=== PATIENT | male | born 1985 | race Two or more races ===

== ENCOUNTER 2017-02-05 02:16 | Emergency (ER) | payer BC, OTHER ==
[2017-02-05 02:24] VITALS: TEMP 97.9; O2SAT 95
[2017-02-05] MEDS ORDERED: ACETAMINOPHEN 500 MG TAB PO ONE (02:25)
[2017-02-05] MEDS ORDERED: IBUPROFEN 600 MG TAB PO ONE (02:25)
[2017-02-05] MEDS ORDERED: TDAP ADULT 0.5 ML INJ (BOOSTRIX) IM ONE (03:14)
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
[2017-02-05 05:49] VITALS: BP 132/84; PULSE 84; RESP 18
== END 2017-02-05 05:47 | disposition home or self-care (01) ==
LOC: EDBD 02:16 → MERGE 02:16
PROC: 0CQ0XZZ Repair Upper Lip, External Approach (ICD-10-PCS; principal; 2017-02-05)
PROC: 3E0234Z Introduction of Serum, Toxoid and Vaccine into Muscle, Percutaneous Approach (ICD-10-PCS; principal; 2017-02-05)
PROC: 0HQGXZZ Repair Left Hand Skin, External Approach (ICD-10-PCS; principal; 2017-02-05)
DX: S02.2XXA Fracture of nasal bones, initial encounter for closed fracture (principal); S01.511A Laceration without foreign body of lip, initial encounter; S61.411A Laceration without foreign body of right hand, initial encounter; Z23 Encounter for immunization; Y04.0XXA Assault by unarmed brawl or fight, initial encounter; Y92.69 Other specified industrial and construction area as the place of occurrence of the external cause; Y99.0 Civilian activity done for income or pay; Y93.89 Activity, other specified

== ENCOUNTER 2017-07-01 12:43 | Emergency (ER) | payer BC, OTHER ==
[2017-07-01 12:58] VITALS: RESP 18; TEMP 99.1; O2SAT 94
[2017-07-01] MEDS ORDERED: NS 1,000 ML IV ONE (13:03)
[2017-07-01 13:18] LABS: % IMMATURE GRANULYOCYTES 0.3 % (0.0-1.1); ABSOLUTE IMMATURE GRANULOCYTES 0.03 10^3/uL (0.00-0.10); ADD DIFF? NO; ADD MORPH? NO; ADD SCAN? NO; ATYPICAL LYMPHOCYTE FLAG 0 (0-99); FRAGMENT RBC FLAG 0 (0-99); HEMATOCRIT 44.7 % (40.0-51.0); HEMOGLOBIN 15.9 g/dL (13.7-17.5); LEFT SHIFT FLG 0 (0-99); LIPEMIA HEMOLYSIS FLAG 90 (0-99); MEAN CELL HEMOGLOBIN 32.4 pg (27.9-34.1); MEAN CELL HEMOGLOBIN CONCENTR. 35.6 g/dL (32.4-36.7); MEAN CELL VOLUME 91.2 fL (81.5-99.8); MEAN PLATELET VOLUME 8.8 fL (8.7-11.7); PLATELET CLUMPS FLAG 10 (0-99); PLATELET COUNT 225 10^3/uL (150-400); RED CELL DISTRIBUTION WIDTH 13.1 % (11.5-15.2)
[2017-07-01 13:32] LABS: ALANINE AMINOTRANSFERASE 48 IU/L (21-72); ALBUMIN 4.2 g/dL (3.5-5.0); ALKALINE PHOSPHATASE 61 IU/L (38-126); ANION GAP 11 mEq/L (8-16); ASPARTATE AMINOTRANSFERASE 26 IU/L (17-59); BILIRUBIN,TOTAL 1.5 mg/dL (0.1-1.4); CALCIUM 9.1 mg/dL (8.5-10.4); CARBON DIOXIDE 25 mEq/l (22-31); CHLORIDE 102 mEq/L (97-110); CREATININE 0.9 mg/dL (0.7-1.3); GLOMERULAR FILTRATION RATE > 60; GLUCOSE 97 mg/dL (70-100); POTASSIUM 4.2 mEq/L (3.5-5.2); SODIUM 138 mEq/L (134-144); TOTAL PROTEIN 6.7 g/dL (6.3-8.2)
[2017-07-01] MEDS ORDERED: KETOROLAC 30 MG/1 ML SDV IVP ONE (13:58)
[2017-07-01 14:21] LABS: COLOR YELLOW; LEUKOCYTE ESTERASE,URINE NEGATIVE (NEGATIVE); NITRITE,URINE NEGATIVE (NEGATIVE)
--- NOTE | 2017-07-01 14:37 | EDPHY ---
H & P Stated Complaint: RUQ pain since 2299 Time Seen by Provider: 07/01/17 12:56 HPI/ROS: This patient reports gradual onset of right upper quadrant abdominal pain, onset yesterday evening of 11:00 p.m. or so that persists since then. The nature the pain is achy. It worsened slightly with a deep breath and certain movements and radiates to his back. He does recall having this pain before. States this feels similar to a muscle ache but does remember any injuries. He notes a feeling of chills last night as if he had a fever but he did not have a fever. He also reports associated nausea and loss of appetite. No other associated symptoms. No other exacerbating or alleviating factors are noted. Came in by private vehicle for further evaluation accompanied by his girlfriend. ROS: As per HPI. No significant fatigue. HEENT: No URI symptoms. No sore throat. Pulmonary: No shortness of breath. No coughing. Cardiovascular: No heart palpitations. No chest pain. No lower extremity swelling. GI: No lower abdominal pain. Normal bowel movements. : No urinary symptoms. No testicle pain. Integumentary: No skin rash Neuro: No numbness tingling. Endocrine: No complaints Complete review of symptoms is otherwise negative Source: Patient Exam Limitations: No limitations - Personal History Tetanus Vaccine Date: 2006 - Medical/Surgical History PMH: Otherwise healthy Hx Asthma: No Hx Chronic Respiratory Disease: No Hx Diabetes: No Hx Cardiac Disease: No Hx Renal Disease: No Hx Cirrhosis: No Hx Alcoholism: No Hx HIV/AIDS: No Hx Splenectomy or Spleen Trauma: No Other PMH: concussions, right knee surgery. no PSH - Family History Significant Family History: No pertinent family hx - Social History Smoking Status: Never smoked Alcohol Use: Occasionally Drug Use: Marijuana - Physical Exam Exam: General Appearance: Alert, no distress. Eyes: Pupils equal and round no pallor or injection. ENT, Mouth: Mucous membranes moist. Respiratory: There are no retractions, lungs are clear to auscultation. Cardiovascular: Regular rate and rhythm. No murmur gallop rub. No JVD. No peripheral edema. Gastrointestinal: Normoactive, soft, mild right upper quadrant tenderness with no guarding or rebound. No organomegaly no lower belly tenderness. Back: No CVA tenderness : No testicular tenderness. Neurological: GCS 15 with no focal deficits. Skin: Warm and dry, no rashes. Musculoskeletal: Neck is supple nontender. Extremities are symmetrical, full range of motion. Psychiatric: Mood and affect normal. DIFFERENTIAL DIAGNOSIS: After history and physical exam differential diagnosis was considered for musculoskeletal injury, cholecystitis, hepatitis, pancreatitis, gastritis, cardiac ischemic disease, acid reflux, PE Constitutional: Initial Vital Signs Temperature (C) 37.3 C 07/01/17 12:55 Heart Rate 80 07/01/17 12:55 Respiratory Rate 18 07/01/17 12:55 Blood Pressure 119/79 07/01/17 12:55 O2 Sat (%) 94 07/01/17 12:55 O2 Delivery Mode Room Air Allergies/Adverse Reactions: No Known Allergies Allergy (Unverified 07/01/17 12:58) Home Medications: Medication Instructions Recorded EPINEPHRINE [EPIPEN] 0.3 mg IM ONCE #2 syr 12/12/15 Medical Decision Making - Diagnostics EKG Interpretation: 12 lead EKG: Performed at 2:35 p.m. indication upper belly pain rule out cardiac ischemia Sinus rhythm 75 Intervals: Normal [place]: Normal ST segments: Normal Overall assessment: Normal EKG Imaging Results: Chest x-ray PA and lateral: Normal by my interpretation Imaging: I viewed and interpreted images myself ED Course/Re-evaluation: IV Toradol for pain with partial relief Review of his labs reveals minimal elevation of his white blood cell count, normal comp metabolic panel including LFTs, normal lipase, negative D-dimer Patient's chest x-ray is also normal is EKG is normal. I think that the source of this patient's pain is likely musculoskeletal given his negative workup the. Other he has had no recent injuries he did have recent URI he may have costochondritis or pleurisy causing his symptoms. After workup, no evidence of PE, ischemic cardiac disease, pneumonia, pneumothorax, pancreatitis, cholecystitis, hepatitis or other concerning findings. I counseled him regarding this. He understands the need to return emergency department if he has significant worsening of symptoms or additional symptoms despite the treatment plan. - Data Points Laboratory Results: Laboratory Results 07/01/17 13:15 07/01/17 13:15 07/01/17 07/01/17 07/01/17 14:15 13:15 13:15 WBC RBC Hgb Hct MCV MCH MCHC RDW Plt Count MPV Neut % (Auto) Lymph % (Auto) Blount % (Auto) Eos % (Auto) Baso % (Auto) Nucleat RBC Rel Count Absolute Neuts (auto) Absolute Lymphs (auto) Absolute Monos (auto) Absolute Eos (auto) Absolute Basos (auto) Absolute Nucleated RBC Immature Gran % Immature Gran # D-Dimer 0.31 ug/mLFEU ug/mLFEU (0.00-0.50) Sodium 138 mEq/L mEq/L (134-144) Potassium 4.2 mEq/L mEq/L (3.5-5.2) Chloride 102 mEq/L mEq/L (97-110) Carbon Dioxide 25 mEq/l mEq/l (22-31) Anion Gap 11 mEq/L mEq/L (8-16) BUN 12 mg/dL mg/dL (7-23) Creatinine 0.9 mg/dL mg/dL (0.7-1.3) Estimated GFR > 60 Glucose 97 mg/dL mg/dL (70-100) Calcium 9.1 mg/dL mg/dL (8.5-10.4) Total Bilirubin 1.5 mg/dL H mg/dL (0.1-1.4) AST 26 IU/L IU/L (17-59) ALT 48 IU/L IU/L (21-72) Alkaline Phosphatase 61 IU/L IU/L (38-126) Total Protein 6.7 g/dL g/dL (6.3-8.2) Albumin 4.2 g/dL g/dL (3.5-5.0) Lipase 54 IU/L IU/L (23-300) Urine Color YELLOW Urine Appearance CLEAR Urine pH 8.0 H (5.0-7.5) Ur Specific [place] 1.010 (1.002-1.030) Urine Protein NEGATIVE (NEGATIVE) Urine Ketones NEGATIVE (NEGATIVE) Urine Blood NEGATIVE (NEGATIVE) Urine Nitrate NEGATIVE (NEGATIVE) Urine Bilirubin NEGATIVE (NEGATIVE) Urine Urobilinogen 0.2 EU EU (0.2-1.0) Ur Leukocyte Esterase NEGATIVE (NEGATIVE) Urine Glucose NEGATIVE (NEGATIVE) 07/01/17 13:15 WBC 10.73 10^3/uL H 10^3/uL (3.80-9.50) RBC 4.90 10^6/uL 10^6/uL (4.40-6.38) Hgb 15.9 g/dL g/dL (13.7-17.5) Hct 44.7 % % (40.0-51.0) MCV 91.2 fL fL (81.5-99.8) MCH 32.4 pg pg (27.9-34.1) MCHC 35.6 g/dL g/dL (32.4-36.7) RDW 13.1 % % (11.5-15.2) Plt Count 225 10^3/uL 10^3/uL (150-400) MPV 8.8 fL fL (8.7-11.7) Neut % (Auto) 78.1 % H % (39.3-74.2) Lymph % (Auto) 13.5 % L % (15.0-45.0) Blount % (Auto) 7.1 % % (4.5-13.0) Eos % (Auto) 0.7 % % (0.6-7.6) Baso % (Auto) 0.3 % % (0.3-1.7) Nucleat RBC Rel Count 0.0 % % (0.0-0.2) Absolute Neuts (auto) 8.39 10^3/uL H 10^3/uL (1.70-6.50) Absolute Lymphs (auto) 1.45 10^3/uL 10^3/uL (1.00-3.00) Absolute Monos (auto) 0.76 10^3/uL 10^3/uL (0.30-0.80) Absolute Eos (auto) 0.07 10^3/uL 10^3/uL (0.03-0.40) Absolute Basos (auto) 0.03 10^3/uL 10^3/uL (0.02-0.10) Absolute Nucleated RBC 0.00 10^3/uL 10^3/uL (0-0.01) Immature Gran % 0.3 % % (0.0-1.1) Immature Gran # 0.03 10^3/uL 10^3/uL (0.00-0.10) D-Dimer Sodium Potassium Chloride Carbon Dioxide Anion Gap BUN Creatinine Estimated GFR Glucose Calcium Total Bilirubin AST ALT Alkaline Phosphatase Total Protein Albumin Lipase Urine Color Urine Appearance Urine pH Ur Specific Waucoma Urine Protein Urine Ketones Urine Blood Urine Nitrate Urine Bilirubin Urine Urobilinogen Ur Leukocyte Esterase Urine Glucose Medications Given: Discontinued Medications Sodium Chloride (Ns) 1,000 mls @ 0 mls/hr IV EDNOW ONE; Wide Open PRN Reason: Protocol Stop: 07/01/17 13:04 Last Admin: 07/01/17 13:10 Dose: 1,000 mls Ketorolac Tromethamine (Toradol) 30 mg IVP EDNOW ONE Stop: 07/01/17 13:59 Last Admin: 07/01/17 14:07 Dose: 30 mg Departure - Departure Disposition: Home, Routine, Self-Care Clinical Impression: Upper abdominal pain Condition: Good Instructions: Acute Abdominal Pain (ED) Additional Instructions: Diagnosis: Upper abdominal pain Plan: Ibuprofen Tylenol for pain as needed Your symptoms should improve over the next 5-14 days. Follow up primary care physician for any ongoing symptoms Return if you develop any significant worsening or additional symptoms despite the treatment plan. Referrals: NONE *PRIMARY CARE P,. [Primary Care Provider] - As per Instructions Luis Saha MD [[facility] [place] Provider] - As per Instructions
--- NOTE | 2017-07-01 14:40 | CPEKG ---
Heart Rate: 75 RR Interval: 800 P-R Interval: 152 QRSD Interval: 102 QT Interval: 352 QTC Interval: 394 P Clio: 67 QRS Clio: 9 T Wave Clio: 21 EKG Severity - NORMAL ECG - EKG Impression: SINUS RHYTHM Electronically Signed By: Tony Fleming 01-Jul-2017 14:50:47
[2017-07-01 15:41] VITALS: BP 118/76; PULSE 88
== END 2017-07-01 15:33 | disposition home or self-care (01) ==
LOC: CED 12:43
DX: R10.11 Right upper quadrant pain (principal); E86.9 Volume depletion, unspecified
CPT/HCPCS: 71020-PO; 80053-PO; 81003-PO; 83690-PO; 85025-PO; 85378-PO; 96374; J1885

== ENCOUNTER 2018-04-14 21:25 | Inpatient (IN) | payer BC, OTHER ==
--- NOTE | 2018-04-14 21:40 | EDPHY ---
H & P <Sheng Rosenthal - Last Filed: 04/15/18 07:35> Smoking Status: Never smoked <Antonio Poole - Last Filed: 04/16/18 15:34> Time Seen by Provider: 04/14/18 21:38 HPI/ROS: Chief complaint. Abdominal pain HPI. 32-year-old male presents with upper abdominal pain for 1 day. He tells me it is worse over the past 2-3 hours. Vomiting x2. Diarrhea this morning. No urinary symptoms. The pain is in the epigastric area and radiates through to his back. He describes it as sharp and aching. Denies chest discomfort or shortness of breath or fever. No similar symptoms previously. No history of peptic ulcer disease though he does tell me he has frequent heartburn not this severe. Drinks alcohol only 2-3 beers per week without increase recently. ROS Constitutional. no fever/chills, no weakness Eyes. no problems with vision ENT. no sore throat, no nasal drainage Cardiovascular. no chest pain Respiratory. no shortness of breath, no cough Abdominal. Epigastric abdominal pain with vomiting . no problems urinating MS. no calf pain/swelling, no neck/back pain, no joint pain Skin. no rash Lymph. no swollen glands Neuro. no headache, no dizziness, no difficulty walking or with speech (Antonio Poole) Past Medical/Surgical History: Concussion, knee surgery (Antonio Poole) Social History: , nonsmoker, no alcohol (Antonio Poole) Physical Exam: General Appearance: Alert well-developed male moderate distress vital signs are stable Eyes: Pupils equal and round no pallor or injection. ENT, Mouth: Mucous membranes are moist. Respiratory: There are no retractions, lungs are clear to auscultation. Cardiovascular: Regular rate and rhythm. Gastrointestinal: Abdomen is soft with tenderness to palpation in the epigastrium. Normal bowel sounds. No masses. Neurological: Awake and alert, sensory and motor exams grossly normal. Skin: Warm and dry, no rashes. Musculoskeletal: Neck is supple nontender. Extremities symmetrical, full range of motion. Psychiatric: Patient is oriented X 3, there is no agitation. (Antonio Poole) Constitutional: Initial Vital Signs Temperature (C) 36.6 C 04/14/18 21:31 Heart Rate 62 04/14/18 21:31 Respiratory Rate 18 07/07/18 21:31 Blood Pressure 149/101 H 04/14/18 21:31 O2 Sat (%) 97 04/14/18 21:31 O2 Delivery Mode Room Air Allergies/Adverse Reactions: No Known Allergies Allergy (Unverified 07/01/17 12:58) Home Medications: Medication Instructions Recorded Acetaminophen [Tylenol 325mg (*)] 650 mg PO Q4HRS PRN tab 04/15/18 Multivitamins [Multivitamin (*)] 1 each PO DAILY 04/15/18 Ondansetron Odt [Zofran Odt 4 mg 4 mg PO Q4 PRN #20 tab 04/15/18 (*)] oxyCODONE IR [Oxycodone Ir (*)] 5 - 10 mg PO Q4 PRN #10 tab 04/15/18 Medical Decision Making - Diagnostics Imaging: Discussed imaging studies w/ supervisor billposting Radiologist <Sheng Rosenthal - Last Filed: 04/15/18 07:35> <Antonio Poole - Last Filed: 04/16/18 15:34> Procedures: IV normal saline. Morphine for pain. Zofran for nausea. GI cocktail (Antonio Poole) ED Course/Re-evaluation: Re-evaluation 10:20 p.m.. No significant change in discomfort with the GI cocktail. Symptoms are somewhat better with the morphine and Zofran Point of care CBC shows 10.4 white blood cell count with hemoglobin 16.1 hematocrit 48.5 Complete metabolic panel is normal with normal LFTs Lipase pending as it has be sent to [facility] (Antonio Poole) Differential Diagnosis: Differential diagnosis includes, but is not limited to: Gastroenteritis, dehydration, hepatitis, pancreatitis, renal colic, kidney stones, ureterolithiasis, cholecystitis, gastritis, mesenteric adenitis, food poisoning, esophagitis. (Sheng Rosenthal) Other Provider: Care assumed at change of shift. D/w off going physician. Chart reviewed. Pt interviewed and examined. To summarize, this is a previously healthy 32-year-old male with no prior abdominal surgery. He awoke at 10:00 a.m. This morning with sense of mild distress and discomfort in the epigastrium. This got worse and worse through the course of the day to the point where at about 5:00 p.m., after a workout at the local gym consisting of weight training, the pain was worse and at that point started radiating through to the back. Pain itself is not worse with position or swallowing nor was it worse when he ate his evening meal-he was not hungry but he just ate cause he thought he needed to. He describes the pain as being moderately severe associated with when episodes of nonbloody emesis at approximately 6:00 p.m.. Further there was an episode of diarrhea earlier approximately 1:00 p.m.. This too was nonbloody, nor black. He is on no prescription medications however does take treating and also other oral supplements as part of his weight training program. He has lost approximately 20 lb over the last 3 months due to dietary restrictions. However it has only been 1-2 lb a week. The pain itself is sharp and achy, persistent, not better with the evening meal. Prior to my arrival he has had the following: Normal CBC the white count is approximately 10 Normal comp panel Pending lipase CT scan of the abdomen performed but results pending. On my exam the patient reports that the pain was moderately better after the morphine but is now reporting that he needs additional medicines. Of note he is 6 ft 3, all muscle at 240 lb and has hadd 6 mg currently and will have 6 more. He is hemodynamically stable without tachycardia. His mucous membranes are slightly dry. Abdomen: Bowel sounds are present. Abdomen is scaphoid. Soft. No organomegaly. He is moderately tender in the epigastrium. No masses are felt. No rebound or guarding. The lipase came back at 20,000. This CT scan was reviewed by me on the PACS system and the findings per the radiologist are as follows: Prominence of the pancreatic head compatible with pancreatitis. There is calcification in the pancreatic head which does not appear to be a stone though the study is suboptimal due to timing of contrast. There is no signs of ductal dilatation. A call was placed to the hospitalist service at [facility] and case was reviewed with Dr. Louise. Patient accepted for admission. I discussed with the patient, and recommended going by ambulanc: however he prefers to go by private car. He was ambulated in the department after the dose of morphine to be certain he was safe to go. He will be driven by his sister. (Sheng Rosenthal) Care Turn Over: Care to Dr. Rosenthal at 11:00 p.m. (Antonio Poole) - Data Points Laboratory Results: 04/14/18 21:50 POC Sodium 138 mEq/L mEq/L (135-145) POC Potassium 3.9 mEq/L mEq/L (3.3-5.0) POC Chloride 101.0 mEq/L mEq/L (97-110) POC Total CO2 26 mEq/L mEq/L (22-31) POC BUN 22 mg/dL mg/dL (7-23) POC Creatinine 1.2 mg/dL mg/dL (0.7-1.3) POC Glucose 97 mg/dL mg/dL (70-100) POC Calcium 9.3 mg/dL mg/dL (8.5-10.4) POC Total Bilirubin 0.9 mg/dL mg/dL (0.1-1.4) POC AST 57 IU/L IU/L (17-59) POC ALT 56 IU/L IU/L (21-72) POC Alk Phosphatase 49 IU/L IU/L (38-126) POC Total Protein 6.7 g/dL g/dL (6.3-8.2) POC Albumin 4.1 g/dL g/dL (3.5-5.0) Medications Given: Discontinued Medications Al Hydroxide/Mg Hydroxide (Maalox Susp) 30 ml PO ONCE ONE Stop: 04/14/18 21:50 Last Admin: 04/14/18 21:58 Dose: 30 ml Enoxaparin Sodium (Lovenox) 40 mg SC DAILY LIZETH Stop: 10/12/18 08:59 Last Admin: 04/15/18 09:46 Dose: 40 mg Hydromorphone HCl (Dilaudid) 0.5 - 1 mg IVP Q3HRS PRN PRN Reason: Pain, Severe Unable to Take PO Stop: 04/25/18 00:33 Last Admin: 04/15/18 00:48 Dose: 0.5 mg Hydromorphone HCl (Dilaudid) 0.5 - 1 mg IVP Q2HRS PRN PRN Reason: Pain, Severe Unable to Take PO Stop: 04/25/18 00:33 Last Admin: 04/15/18 03:06 Dose: 1 mg Sodium Chloride (Ns) 1,000 mls @ 0 mls/hr IV EDNOW ONE; Wide Open PRN Reason: Protocol Stop: 04/14/18 21:50 Last Admin: 04/14/18 21:57 Dose: 1,000 mls Sodium Chloride (Ns) 1,000 mls @ 150 mls/hr IV CONT LIZETH Stop: 10/12/18 00:44 Last Admin: 04/15/18 14:14 Dose: 1,000 mls Lidocaine (Lidocaine 2% Viscous) 15 ml PO ONCE ONE Stop: 04/14/18 21:50 Last Admin: 04/14/18 21:58 Dose: 15 ml Lorazepam (Ativan Injection) 0.5 - 1 mg IVP Q6HRS PRN PRN Reason: Anxiety, Unable to Take PO Stop: 10/12/18 00:33 Last Admin: 04/15/18 00:49 Dose: 0.5 mg Morphine Sulfate (Morphine) 6 mg IVP EDNOW ONE Stop: 04/14/18 21:50 Last Admin: 04/14/18 22:06 Dose: Not Given Morphine Sulfate (Morphine) 6 mg IVP EDNOW ONE Stop: 04/14/18 22:01 Last Admin: 04/14/18 22:06 Dose: 6 mg Morphine Sulfate (Morphine) 6 mg IVP EDNOW ONE Stop: 04/15/18 00:11 Last Admin: 04/15/18 00:12 Dose: 6 mg Ondansetron HCl (Zofran) 4 mg IVP EDNOW ONE Stop: 04/14/18 21:50 Last Admin: 04/14/18 21:59 Dose: 4 mg Point of Care Test Results: CBC CBC Collection Date 04/14/18 CBC Collection Time 21:40 WBC 10.4 RBC 5.05 HGB 16.1 HCT 48.5 PLT 268 Neut # 8.2 Neut 78.3 LYMPH # 1.7 LYMPH 16.5 Other WBC # 0.5 Other WBC 5.2 MCV 96.0 Chemistry 04/14/18 21:50 POC Sodium 138 mEq/L mEq/L (135-145) POC Potassium 3.9 mEq/L mEq/L (3.3-5.0) POC Chloride 101.0 mEq/L mEq/L (97-110) POC Total CO2 26 mEq/L mEq/L (22-31) POC BUN 22 mg/dL mg/dL (7-23) POC Creatinine 1.2 mg/dL mg/dL (0.7-1.3) POC Glucose 97 mg/dL mg/dL (70-100) POC Calcium 9.3 mg/dL mg/dL (8.5-10.4) POC Total Bilirubin 0.9 mg/dL mg/dL (0.1-1.4) POC AST 57 IU/L IU/L (17-59) POC ALT 56 IU/L IU/L (21-72) POC Alk Phosphatase 49 IU/L IU/L (38-126) POC Total Protein 6.7 g/dL g/dL (6.3-8.2) POC Albumin 4.1 g/dL g/dL (3.5-5.0) Departure <Sheng Rosenthal - Last Filed: 04/15/18 07:35> <Antonio Poole - Last Filed: 04/16/18 15:34> - Departure Disposition: [facility] Inpatient Acute Clinical Impression: Pancreatitis Qualifiers: Chronicity: acute Pancreatitis type: unspecified pancreatitis type Acute pancreatitis complication: no infection or necrosis Qualified Code(s): K85.90 - Acute pancreatitis without necrosis or infection, unspecified Condition: Good
[2018-04-14] MEDS ORDERED: LIDOCAINE 2% VISCOUS 15 ML UDCUP PO ONE (21:49)
[2018-04-14] MEDS ORDERED: ONDANSETRON 4 MG/2 ML VIAL IVP ONE (21:49)
[2018-04-14] MEDS ORDERED: MAG HYDROX/AL HYDROX/SIMETH 30 ML UDCUP PO ONE (21:49)
[2018-04-14] MEDS ORDERED: NS 1,000 ML IV ONE (21:49)
[2018-04-14] MEDS ORDERED: IOPAMIDOL (ISOVUE-300) 100 ML BTL ONE (22:47)
[2018-04-15] MEDS ORDERED: ONDANSETRON 4 MG/2 ML VIAL IVP PRN (00:34)
[2018-04-15] MEDS ORDERED: ACETAMINOPHEN 325 MG TAB PO PRN (00:34)
[2018-04-15] MEDS ORDERED: LORazepam 2 MG/ML INJ IVP PRN (00:34)
[2018-04-15] MEDS ORDERED: PROMETHAZINE HCL 25 MG/ML INJ IVP PRN (00:34)
[2018-04-15] MEDS ORDERED: HYDROmorphONE/DILAUDID 1 MG/ML INJ IVP PRN ×2 (00:34→03:02)
[2018-04-15] MEDS: NS 1,000 ML IV SCH ×3 (00:50→14:14)
--- NOTE | 2018-04-15 04:00 | GHP ---
[f rep st] HISTORY AND PHYSICAL DATE OF ADMISSION: 04/15/2018 SOURCE: Patient provides history, appears reliable. EMR was reviewed and case discussed with the ED provider before arrival from [facility]. CHIEF COMPLAINT: Epigastric pain. HISTORY OF PRESENT ILLNESS: This is a pleasant 32-year-old gentleman with no significant past medica l history who presents to the emergency department today with complaints of sudden onset of epigastri c pain starting approximately 10 a.m. The patient reports that he woke up from sleep due to severe p ain with radiation to his back. Patient states that he has never had any symptoms similar to this pr eviously. He has had intermittent episodes of gastroesophageal reflux which has been treated appropr iately [id number] with Zantac relieving his symptoms. He states that when he develops increasi ng acid, he does vomit and feels relief with this as well. He denies any hematemesis. Today, patien t thought that he might be having a little constipation, so he tried to take some stool softeners and subsequently developed some loose stools. Denies any melena or hematochezia. He has had decreased appetite all day, but he last ate approximately 4 p.m. His pain did not significantly change. He de scribes it as sharp, radiating to the back and epigastric in location. The patient reports that he d id present to the emergency department last year with right upper quadrant abdominal pain. He states that he underwent imaging studies with x-rays and thought perhaps he had a mild case of pancreatitis versus gallbladder issues, but has not had any concerns or pain in the right upper quadrant since th at time. The patient denies any abdominal distention. In the emergency department patient did recei ve Dilaudid with minimal relief of his abdominal pain. Since arrival to the floor, patient did arriv e by private vehicle in transfer and received a dose of Ativan with improvement of symptoms from 07/09 0 pain down to 4. REVIEW OF SYSTEMS: A 10-point review of systems is reviewed and negative except as noted above. ALLERGIES: No known drug allergies. HOME MEDICATIONS: Patient reports that he is followed by a physician. He has been receiving anaboli c steroids by prescription, per his report, with weekly injections of Trenbolone and drostanolone. A dditionally, patient is on numerous fsvd-ngn-vcihhdy supplements including milk thistle, stinging net tle root, fish oil, vitamin D; multiple whey protein supplementations with Vitamin B, creatinine, fis h oil, L-arginine, L-carnitine and whey protein. The patient additionally has been prescribed phente rmine. He has taken bilx-ugt-sbmckuv ephedra supplements and caffeine. PAST MEDICAL HISTORY: Negative. PAST SURGICAL HISTORY: Right meniscus repair. FAMILY HISTORY: Grandmother with diabetes type 2. SOCIAL HISTORY: Patient is employed with 2 jobs. He goes to the gym 2 or more times daily. He does not smoke, drink, or do drugs. CODE STATUS: Full. PHYSICAL EXAMINATION: VITAL SIGNS: Upon arrival at [facility] at approximately 9 p.m. , blood pressure 149/101, heart rate 62, respiratory rate 18, O2 sat is 97% on room air, temperature 36.6. Current vital signs on the medical floor: Blood pressure 145/81, heart rate 69, respiratory r ate 18, O2 saturation 96% on room air with temperature 37.2. GENERAL: Patient does appear fatigued. He is cradling his upper abdomen. He does not appear in any acute distress. HEAD: Normocephalic, atraumatic. EYES: Extraocular muscles are grossly intact. Pupils equal, round, with decreased harinder ctivity to light bilaterally, but symmetric. No scleral icterus or conjunctival injection. ENT: Mu cous membranes appear moist. Some minimal oropharyngeal erythema but no exudates. No nasal discharg e. NECK: Supple. Trachea midline. CV: Regular rate and rhythm. No murmurs, rubs, or gallops alfredito reciated. RESPIRATORY: Unlabored breathing. LUNGS: Clear to auscultation bilaterally. No wheezes , rales, or rhonchi appreciated. ABDOMEN: Positive bowel sounds, soft. Patient with tenderness to palpation in the epigastric region. Negative Carlos sign. No rebound, guarding, or distention noted . Positive bowel sounds. : No suprapubic tenderness to palpation. No Lux catheter in place. EXTREMITIES: Patient moves all extremities. Sits up independently with some minimal discomfort due to abdominal pain. NEURO: Grossly nonfocal. No facial drooping. PSYCH: Patient awake, alert, and oriented x3. He is not agitated. Not anxious. Thought process, content and questions are all appr opriate. LABORATORY STUDIES: WBCs 10.4, H and H is 16.1 and 48.5, platelet count 268, MCV 96.0. LFTs were re ported to be within normal limits. Lipase was greater than 20,000. IMAGING: CT abdomen and pelvis image report reviewed noting the pancreas with enlargement, heterogen eous attenuation. Punctate calcification centrally within the pancreatic head. Minimal edema in the peripancreatic fat. No free fluid or pseudocyst formation. There is a 1 cm mid pole left kidney, l ikely cyst, with for ultrasound verification. ASSESSMENT AND PLAN: Pleasant 32-year-old gentleman with a significant past medical history who is r eceiving anabolic steroid injections and presents to the emergency department today with acute onset of epigastric abdominal pain. 1. Acute pancreatitis. CT significant for evidence of acute pancreatitis with some calcifications a lso noted. Question if patient had an episode of pancreatitis previously. Patient is on multiple he rbal supplements, as well as anabolic steroid injections, which potentially could put patient at risk for pancreatitis. There is no evidence of stone on CT or obstruction. The contrast phase did limit evaluation of the pancreatic duct, however, given that he does have also a renal cyst noted incident amari, we will plan to just obtain a complete abdominal ultrasound for further evaluation. Patient wi ll be made n.p.o. He will receive IV fluids as well as IV pain management. We will track his lipase in the morning and complete additional further review of all patient's supplements and medications a nd try to have him eliminate these in the future. 2. Nausea and vomiting currently controlled. Zofran and Phenergan available p.r.n. 3. Intractable abdominal pain. Patient's pain has improved after dosing of Dilaudid and Ativan. He continues to have some level of abdominal pain but is much improved. Will continue IV and provide b owel rest as noted above and plan. 4. FEN: IV fluids while patient is n.p.o. Electrolyte monitoring and replacement if needed. 5. Prophylaxis: SCDs, Lovenox, as anticipate patient will be here greater than 2 days. 6. COR status: Full. 7. Disposition: The patient admitted to inpatient status on the medical floor given the severity of pancreatitis. Anticipate greater than 2-midnight stay. /[id number]/MODL
[2018-04-15] MEDS ORDERED: ENOXAPARIN 40 MG/0.4 ML SYR SC SCH (09:00)
--- NOTE | 2018-04-15 10:15 | PDMN ---
Medical Necessity Medical necessity: MCG M250 Pancreatitis, 2 days. 32 y/o w/ severe acute pancreatitis. Lipase >84145, Pt NPO. Ongoing IV fluids and IV opioids for pain management required. Hypertensive. Anticipate >2MN for ongoing monitoring and treatment.
--- NOTE | 2018-04-15 13:37 | ASMTCMCOM ---
CM Note CM Note Notes: 32yr old male admitted for abdominal pain, pancreatitis. Found to take multiple herbs and uses steroid injections. Lives in [place]. Not anticipating that patient will have discharge needs. Date Signed: 04/15/2018 01:37 PM Electronically Signed By:Camryn Willson LCSW
[2018-04-15 15:20] VITALS: BP 119/79
--- NOTE | 2018-04-15 17:33 | PDDCSUM ---
Discharge Summary Discharge Summary: DISCHARGE SUMMARY FOLLOW-UP ITEMS: 1. Reassess whether to permanently discontinue testosterone and other supplements with primary care provider 2. Consider outpatient gastroenterology referral if pancreatitis recurs DATE OF ADMISSION: 04/14/2018 DATE OF DISCHARGE: 04/15/2018 DISCHARGE DIAGNOSES: 1. Acute idiopathic pancreatitis CONSULTATIONS: None PROCEDURES / IMAGING: CT of the abdomen demonstrating peripancreatic edema, calcification in the head Renal ultrasound demonstrating simple cyst CHIEF COMPLAINT: Acute abdominal pain SUBJECTIVE: Patient's abdominal pain has significantly improved, he is tolerating a solid diet PHYSICAL EXAM ON DISCHARGE: Systolic blood pressure is 110, heart rate 50-70, afebrile overnight, satting on room air, alert awake oriented x3, bulky muscular build, abdomen is soft, minimally tender in the mid epigastric area without any rebound or guarding, bowel sounds are present, acromegaly present LABS ON DISCHARGE: Initial lipase greater than 20,000, liver panel unremarkable, creatinine 0.9, white blood cell count [id number] HOSPITAL COURSE BY PROBLEM: The patient presented with acute abdominal pain secondary to acute pancreatitis as evidenced by a serum lipase level of greater than 20,000, midepigastric pain , peripancreatic edema and calcification on CT imaging. He was treated with aggressive IV fluids, placed on bowel rest, and received IV pain and nausea medications. His clinical symptoms resolved much more rapidly than originally anticipated, and on 04/15/2018, the patient was feeling hungry and we were able to advance his diet to clear liquids in the morning, low-fat solids in the afternoon. The patient tolerated this diet advancement, and he was safely discharged home with a prescription for some oral oxycodone and Zofran as needed if he experiences any recurrence of symptoms. The remaining question is what caused the patient's acute pancreatitis, as the patient does not consume alcohol regularly and he had not consumed any alcohol within the past 2 weeks prior to this presentation. He also not recently consumed particularly fatty meal, and the patient's diet is relatively low fat and lean. It is possible that the patient's testosterone or muscle building supplements caused his condition and I have recommended that the patient hold off on administering these medications tomorrow, until he sees his primary care provider for additional guidance. It seems that the patient is taking the supplementations for muscle building, and it is unclear whether he has a true need for testosterone supplementation, as the patient has not recently had any levels checked and he has been on this medication for quite some time. DISCHARGE MEDICATIONS: Please see official discharge medication reconciliation sheet in chart , oxycodone as needed 10 tabs prescribed, Zofran as needed 20 tabs prescribed. Hold home testosterone and other muscle building supplements. DISCHARGE INSTRUCTIONS: Please follow up with primary care provider this week, and get a gastroenterology referral if pancreatitis reoccurs. TIME SPENT: Greater than 30 minutes were spent on direct patient care, as well as discharge planning and preparation. The patient was discharged earlier than originally anticipated by the admitting provider, as the patient's clinical condition experienced unanticipated, rapid recovery secondary to highly physician expeditious care by the patient's nursing staff and hospitalist provider.
== END 2018-04-15 18:00 | disposition home or self-care (01) | DRG 440 ==
LOC: CED 21:25 → CEDHOLD 23:31 → F3E 04-15 00:29
PROVIDERS: ADMIT Family Medicine; ATTEND Internal Medicine
DX: K85.90 Acute pancreatitis without necrosis or infection, unspecified (principal); N28.1 Cyst of kidney, acquired; R12 Heartburn; Z87.820 Personal history of traumatic brain injury; Z79.52 Long term (current) use of systemic steroids; Z79.899 Other long term (current) drug therapy
CPT/HCPCS: 74177-PO; 80053-PO; 96374; J1170; J1650; J2060; J2270; J2405; Q9967